=== PATIENT | male | born 1965 | race Caucasian/White ===

== ENCOUNTER 2019-08-06 10:10 | Outpatient (CLI) | payer OTHER, SELFPAY ==
--- NOTE | 2019-08-06 10:18 | US_ITS ---
WS: [id number] Gallbladder ultrasound, 08/06/2019 Clinical Data: HX JAUNDICE Comparison: None. Findings: The gallbladder shows no sludge or stone. The wall measures 2.2 mm with no pericholecystic fluid. The common bile duct is 2.7 mm and there are no intrahepatic ductal abnormalities. Liver shows no cysts, masses or dilated intrahepatic ducts. The pancreas is not obscured by overlying bowel gas and no cyst, pseudocyst, or evidence of pancreat itis is noted. Right kidney measures 11.7 cm and no cyst, masses or hydronephrosis can be seen. The aorta and inferior vena cava show no vascular abnormalities. US/US gall bladder [id number] Impression: Negative gallbladder and right upper quadrant ultrasound.
== END 2019-08-06 10:11 | disposition home or self-care (01) ==
LOC: RAD 10:14
PROVIDERS: Family Provider Internal Medicine; Visit Provider Internal Medicine
DX: R17 Unspecified jaundice (principal)
CPT/HCPCS: 76705

== ENCOUNTER 2019-08-28 13:52 | Outpatient (CLI) | payer OTHER, SELFPAY ==
--- NOTE | 2019-08-28 14:46 | XR_ITS ---
WS: [id number] LATERAL LUMBAR SPINE: 3 view. Lateral radiographs are performed in upright neutral, flexion and extension to the patient's toleranc e. HISTORY: low back pain COMPARISON: None available. L1 retrolisthesis by 2 mm does not change with flexion or extension. Small endplate osteophytes with the lumbar spine. Mild disc space narrowing at L1-2. With flexion and extension there is no instabili ty. XR/XR lumbar spine f/e only [id number] IMPRESSION: 1. No lumbar spine instability. 2. L1 retrolisthesis by 2 mm.
== END 2019-08-28 13:53 | disposition home or self-care (01) ==
LOC: RADWPI 14:01
PROVIDERS: Family Provider Internal Medicine; PCP Internal Medicine; Visit Provider Licensed Practical Nurse
DX: M54.5 Low back pain (principal)
CPT/HCPCS: 72120

== ENCOUNTER 2020-06-15 07:47 | Outpatient (CLI) | payer OTHER, SELFPAY ==
--- NOTE | 2020-06-15 08:04 | MR_ITS ---
WS: [id number] MRI CERVICAL SPINE NONCONTRAST TECHNIQUE: Sagittal T1, T2 and STIR imaging. Axial T2, gradient, and fiesta imaging. CLINICAL INFORMATION: CERVICALGIA COMPARISON: None. FINDINGS: Straightening of the normal cervical lordosis. Cord signal is normal. Mild disc bulging C5-6. C2-C3: Normal. C3-C4: Mild disc osteophytic ridging. Mild right and no significant left foraminal narrowing. Spinal canal is patent. C4-C5: Mild disc osteophytic ridging. Tiny central protrusion. Mild bilateral foraminal narrowing. Sp inal canal is patent. C5-C6: Right pericentral disc osteophyte protrusion with slight contact of the cervical cord. Mild ce ntral canal stenosis. Moderate bilateral bony foraminal narrowing. C6-C7: Mild disc osteophyte complex with endplate ridging. Right pericentral disc osteophyte protrusi on. Moderate bilateral bony foraminal narrowing. C7-T1: Mild bilateral bony foraminal narrowing. Spinal canal is patent. Mild facet arthropathy Retention cyst sphenoid sinus. MR/MR cervical spin wo con* [id number] IMPRESSION: 1. Straightening of the normal cervical lordosis. Cord signal is normal. 2. Mild central canal stenosis C5-C6 with a right pericentral disc osteophyte protrusion and slight contact of the cervical cord. 3. Shallow right pericentral protrusion C6-C7. 4. Moderate bilateral bony foraminal narrowing more prominent at bilateral C5- C6 and bilateral C6-7.
== END 2020-06-15 07:48 | disposition home or self-care (01) ==
PROVIDERS: PCP Family Medicine; Visit Provider Family Medicine
DX: M48.02 Spinal stenosis, cervical region (principal); M25.78 Osteophyte, vertebrae; M50.223 Other cervical disc displacement at C6-C7 level
CPT/HCPCS: 72141

== ENCOUNTER 2022-07-18 07:14 | Outpatient (CLI) | payer OTHER, SELFPAY ==
--- NOTE | 2022-07-18 07:27 | USR_ITS ---
PROCEDURE INFORMATION: Exam: US Abdomen, Limited; Right Upper Quadrant Exam date and time: 07/18/2022 7:38 AM Age: 57 years old Clinical indication: Condition or disease; Liver condition; Cirrhosis; Congestive; Additional info: Liver cirrhosis HX TECHNIQUE: Imaging protocol: Real time ultrasound of the abdomen with image documentation. Limited exam focused on the right upper quadrant. COMPARISON: US gall bladder [id number] 08/06/2019 10:31 AM FINDINGS: Liver: Unremarkable. No masses. Gallbladder: Normal. No gallstones. There is no gallbladder wall thickening. Biliary ducts: Normal. No stones. Common bile duct is 0.24 cm in width. Pancreas: Visualized pancreas is unremarkable. Right kidney: Normal. No mass. No hydronephrosis. US/US abdomen limited [id number] IMPRESSION: No acute findings.
== END 2022-07-18 07:15 | disposition home or self-care (01) ==
LOC: RAD 07:17
PROVIDERS: PCP Family Medicine; Visit Provider Family Medicine
DX: Z01.89 Encounter for other specified special examinations (principal)
CPT/HCPCS: 76705

== ENCOUNTER 2023-06-08 11:23 | Outpatient (CLI) | payer OTHER, SELFPAY ==
--- NOTE | 2023-06-08 11:37 | US_ITS ---
WS: [id number] RIGHT UPPER QUADRANT ULTRASOUND HISTORY: LIVER CIRRHOSIS COMPARISON: None available. Liver: 15.5 cm in length. Normal size liver and echogenicity. No bile duct dilatation or mass. Portal Vein: Normal hepatopetal flow with monophasic waveform. Gallbladder: Normally distended gallbladder with no stones or wall thickening. CBD: 0.2 cm Pancreas: Normal size and echogenicity. Right kidney: 12.7 cm in length. Normal size and echogenicity. No hydronephrosis or mass. Aorta and IVC: Unremarkable abdominal aorta and IVC. No ascites. IMPRESSION: Normal RIGHT upper quadrant ultrasound.
== END 2023-06-08 11:24 | disposition home or self-care (01) ==
LOC: RAD 11:23
PROVIDERS: PCP Family Medicine; Visit Provider Family Medicine
DX: K74.60 Unspecified cirrhosis of liver (principal)
CPT/HCPCS: 76705

== ENCOUNTER 2024-01-05 08:56 | Outpatient (CLI) | payer OTHER, SELFPAY ==
--- NOTE | 2024-01-05 09:00 | US_ITS ---
WS: [id number] Complete ABDOMINAL ULTRASOUND HISTORY: HCC SURVEILLANCE COMPARISON: 06/08/2023 Liver: 16.0 cm in length. Normal size liver and echogenicity. No bile duct dilatation or mass. Portal Vein: Normal hepatopetal flow with monophasic waveform. Gallbladder: Normally distended gallbladder with no stones or wall thickening. CBD: 0.4 cm Pancreas: Normal size and echogenicity. Right kidney: 11.1 cm x 5.3 x 4.8 cm. Cortex:1.3 cm. Normal size and echogenicity. No hydronephrosis or mass. Left kidney: 12.0 cm x 5.0 cm x 4.8 cm. Cortex: 1.3 cm. Normal size and echogenicity. No hydronephrosis or mass. Spleen: 10.9 cm. Normal size and echogenicity. Aorta and IVC: Unremarkable abdominal aorta and IVC. US/US abdomen complete* [id number] Impression: Normal complete abdomen ultrasound.
== END 2024-01-05 08:57 | disposition home or self-care (01) ==
PROVIDERS: PCP Family Medicine; Visit Provider Family Medicine
DX: Z01.89 Encounter for other specified special examinations (principal)
CPT/HCPCS: 76700

== ENCOUNTER 2025-01-09 06:50 | Outpatient (CLI) | payer OTHER, SELFPAY ==
--- NOTE | 2025-01-09 07:15 | US_ITS ---
WS: [id number] Complete ABDOMINAL ULTRASOUND HISTORY: HCC SURVEILLANCE COMPARISON: 01/05/2024 Liver: 16.8 cm in length. Normal size liver. Mild coarse echotexture throughout the liver. No mass identified. No intrahepatic duct dilatation. Portal Vein: Normal hepatopetal flow with monophasic waveform. Gallbladder: Normally distended gallbladder with no stones or wall thickening. CBD: 0.4 cm Pancreas: Normal size and echogenicity. Right kidney: 11.7 cm x 5.9 x 5.8 cm. Cortex:1.3 cm. Normal size and echogenicity. No hydronephrosis or mass. Left kidney: 11.2 cm x 5.1 cm x 5.0 cm. Cortex: 1.3 cm. Normal size and echogenicity. No hydronephrosis or mass. Spleen: 10.9 cm. Normal size and echogenicity. Aorta and IVC: Unremarkable abdominal aorta and IVC. US/US abdomen complete* [id number] Impression: 1. Coarse echotexture throughout the liver most likely from hepatic steatosis or hepatocellular disease such as cirrhosis. No hepatic mass. 2. Negative gallbladder. 3. Negative kidneys. 4. Normal size spleen.
== END 2025-01-09 06:51 | disposition home or self-care (01) ==
LOC: RAD 06:51
PROVIDERS: PCP Family Medicine; Visit Provider Family Medicine
DX: Z01.89 Encounter for other specified special examinations (principal)
CPT/HCPCS: 76700